=== PATIENT | female | born 2000 | race Caucasian/White ===

== ENCOUNTER 2021-12-14 10:45 | Emergency (ER) | payer SELFPAY ==
[~2021-12-14] VITALS: Ht 167.6 cm; Wt 63.0 kg
[2021-12-14 10:47] VITALS: BP 127/63
--- NOTE | 2021-12-14 12:09 | NUR ---
PT SEEN AND CLEARED BY GATITO BARBA, NO NURSING INTERVENTIONS PROVIDED
--- NOTE | 2021-12-14 12:10 | NUR ---
PATIENT BIB [employer]. PATIENT EXAMINED BY GATITO BARBA. PATIENT MEDICALLY CLEARED AND RELEASED IN CUSTODY IN STABLE CONDITION. ORIGINAL PRE-BOOK FORM GIVEN TO OFFICER ALYSSA #118.
== END 2021-12-14 12:10 | disposition home or self-care (01) ==
LOC: MED 10:45
DX: S01.101A Unspecified open wound of right eyelid and periocular area, initial encounter (principal); F17.210 Nicotine dependence, cigarettes, uncomplicated; F12.90 Cannabis use, unspecified, uncomplicated; F15.90 Other stimulant use, unspecified, uncomplicated; Z02.89 Encounter for other administrative examinations; W19.XXXA Unspecified fall, initial encounter; Y93.89 Activity, other specified; Y92.89 Other specified places as the place of occurrence of the external cause; Y99.8 Other external cause status
CPT/HCPCS: 99283

== ENCOUNTER 2023-09-18 11:28 | Emergency (ER) | payer OTHER, MEDICAID ==
[~2023-09-18] VITALS: Ht 167.6 cm; Wt 58.1 kg
[2023-09-18 11:29] VITALS: BP 128/85; PULSE 110; RESP 24; TEMP 97.8; O2SAT 97
[2023-09-18] MEDS ORDERED: MIDAZOLAM 2 MG/2 ML VIAL IVP ONE (11:35)
[2023-09-18 13:16] VITALS: BP 128/85; PULSE 110; RESP 24; TEMP 97.8; O2SAT 97
== END 2023-09-18 13:16 | disposition home or self-care (01) ==
LOC: MED 11:28
DX: F15.129 Other stimulant abuse with intoxication, unspecified (principal); F11.90 Opioid use, unspecified, uncomplicated
CPT/HCPCS: 81025; 99283